=== PATIENT | female | born 1955 | race Caucasian/White ===

== ENCOUNTER 2023-07-24 13:42 | Emergency (ER) | payer OTHER, BC ==
[~2023-07-24] VITALS: Ht 162.6 cm; Wt 54.4 kg
== END 2023-07-24 18:58 | disposition home or self-care (01) ==
LOC: ER 13:42
DX: S60.051A Contusion of right little finger without damage to nail, initial encounter (principal); W18.30XA Fall on same level, unspecified, initial encounter; Y93.9 Activity, unspecified; Y92.89 Other specified places as the place of occurrence of the external cause; Y99.9 Unspecified external cause status; Z88.0 Allergy status to penicillin